=== PATIENT | female | born 1940 | race Caucasian/White ===

== ENCOUNTER 2017-09-17 11:35 | Outpatient (CLI) | payer MEDICARE ==
--- NOTE | 2017-09-17 13:54 | RAD ---
2 VIEWS CHEST: Date: 09/17/17 COMPARISON: None. HISTORY: Preoperative radiograph. FINDINGS: Two views of the chest show a normal sized cardiomediastinal silhouette. There is no evidence of cons olidation, mass, or pleural effusion. The patient has a calcified left breast implant. IMPRESSION: No evidence of acute cardiopulmonary disease. POS: [facility]
== END 2017-09-17 11:36 | disposition home or self-care (01) ==
LOC: RAD-FRANK 11:35
PROVIDERS: ATTEND Nurse Practitioner Family
DX: Z01.818 Encounter for other preprocedural examination (principal)
CPT/HCPCS: 71046

== ENCOUNTER 2022-08-01 14:03 | Outpatient (CLI) | payer MEDICARE | END 2022-08-01 14:04 | disposition home or self-care (01) | LOC: RAD-FRANK 14:03 | PROVIDERS: ATTEND Nurse Practitioner Family | DX: R05.2 Subacute cough (principal) | CPT/HCPCS: 71046 ==